=== PATIENT | male | born 1975 | race Caucasian/White ===

== ENCOUNTER 2023-01-21 00:56 | Day surgery (SDC) | payer BC, SELFPAY ==
[2023-01-17 12:13] VITALS: BMI 23.7
--- NOTE | 2023-01-17 12:21 | PC.NURSE ---
Report to the Outpatient Waiting Room, entrance under the green pavilion located off [facility], at time __0600 on date ___01/21/23____. Planned Procedure Time: ____729____. Time changes happen often and if your time is changed the preop area will call you the afternoon before. - You and your visitor will be asked to self-screen and do not enter if you have any COVID symptoms. - A mask is optional within the hospital at this time. Patients may have clear liquids (water, carbonated beverages, clear teas, apple juice) until 3 hours prior to surgery (0430- AM) with a maximum of 20 ounces. - No food from midnight until time of surgery - Infants may have breast milk until 4 hours before surgery, formula 6 hours prior to surgery. - Children will be allowed to drink immediately following surgery. If applicable, please bring a bottle or sippy cup to assist with drinking. Juice, water, soda, and popsicles are readily available. For infants on formula, please bring formula the day of surgery. Pacifiers are allowed. Take the following medications with a SIP of water the morning of surgery: NONE DO NOT STOP ANY OF YOUR OTHER PRESCRIPTION MEDICATIONS PRIOR TO SURGERY ?EXCEPT THE FOLLOWING Medications to discontinue per physician NONE Date to take last dose Please no make-up, nail pashto, hairspray, perfume, deodorant, or body powder the day of surgery. No jewelry (including any body piercings) or valuables the day of surgery, leave them at home. Please take a shower or bath the night before, or the morning of, surgery with an antibacterial soap. Wear comfortable, loose fitting clothing. Children are encouraged to wear pajamas. - Jewelry must be removed prior to entering the operating room. Rings and piercings that are not removed may be cut off. - The hospital will not accept responsibility for valuables. - Please leave all valuables, including medications, at home the day of surgery. If you are going home after surgery, a licensed otr flatbed driver must drive you home. - NO public transportation without another adult if you receive anesthesia. - We recommend that an adult stay with you for 24 hours following discharge. - We also recommend that you do not drive, make important decision, drink alcoholic beverages, or take any drugs that were not prescribed by your health care provider for at least 24 hours after your discharge time. For Pediatric surgeries, we recommend two adults accompany the child home. Follow any additional instructions given to you from your surgeon. If you or anyone in your household have experienced Covid symptoms in the past week, please notify your surgeon or the nurse liaison at the phone number below for possible testing. Telephone instructions given to PT and asked if any additional questions and then verbalized understanding. Patient advised to call surgeon office or pre surgery nurse liaison [phone] if any additional questions.
--- NOTE | 2023-01-20 09:52 | WPDANESEPPF ---
Anes - Initial Pre Proc Eval Procedure: Operation Date: 01/21/23 08:30 Proposed Procedures p Arthrodesis of Interphalangeal Joint Left Hallux - Martir Monterroso JR, MD Date/Time: 01/20/23 09:52 Surgeon: Martir Monterroso JR, MD Pre Op Diagnosis: Arthritis IPJ Lt Hallux Patient Data Age: 47 Gender: M Height: 1.78 m Weight: 75 kg Allergies Allergy/AdvReac Type Severity Reaction Status Date / Time No Known Allergies Allergy Mild Verified 01/21/23 07:03 Home Medications Medication Instructions Recorded Confirmed Type pantoprazole 20 mg tablet,delayed 20 mg PO DAILY 01/17/23 01/21/23 History release rosuvastatin 40 mg tablet 40 mg DAILY 01/17/23 01/21/23 History Patient hx anesthesia problems: none Family hx anesthesia problems: none Results Review: All pre-operative results and documents have been reviewed as part of the pre-operative evaluation. FORMERLY [facility], [facility] Past Medical History Medical History (Updated 01/20/23 @ 09:52 by Jeffrey Felipe DO) GERD (gastroesophageal reflux disease) Hyperlipidemia Social History Social History Smoking status: Never smoker Second hand tobacco smoke exposure: No Alcohol intake: current Drinks per week: 21 Substance use: never Substance use type: does not use Living arrangements: with family Spiritual care concerns: No Anes - Eval Final PreProcedure Day of Procedure 01/20/23 09:52 Patient weight: normal Heart: regular rate and rhythm Lungs: clear to auscultation Airway: Mallampati scale class II Neurological: alert and oriented Last oral intake: >/= 8 hours ASA classification: III Emergent: no Anesthetic plan: proceed Anesthesia type and monitoring: general GIVS and standard monitoring Results Review: All pre-operative results and documents have been reviewed as part of the pre-operative evaluation. Informed Consent: The patient's anesthetic plan and its attendant risks and benefits were discussed with the patient/family/POA. Questions were solicited and answers provided to the satisfaction of the patient/family/POA.
--- NOTE | ~2023-01-21 | XR_ITS ---
EXAMINATION: XR surgery orthopedic DATE: 01/21/2023 09:49 INDICATION: Left great toe arthrodesis TECHNIQUE: 2 fluoroscopic images of the left great toe were obtained during procedure performed by Dr Yaw Monterroso. Radiologist was not present for the imaging or procedure. The amount of fluoroscopy time used during this procedure was 0.4 minutes. COMPARISON: None. FINDINGS: Images demonstrate the left first interphalangeal arthrodesis which is fixed with a cannulated lag sc rew extending from the tuft of the distal phalanx to the metaphyseal region of the proximal phalanx. Alignment remains essentially anatomic. The remaining joint spaces appear relatively preserved. No fr actures. IMPRESSION: 1. Expected appearance post first interphalangeal arthrodesis with lag screw fixation. See procedure note for further detail. Reviewed, dictated and finalized at location A. IMPRESSION: 1. Expected appearance post first interphalangeal arthrodesis with lag screw fi xation. See procedure note for further detail.
[2023-01-21 06:47] VITALS: BP 135/87; PULSE 60; RESP 16; TEMP 36.7; O2SAT 100
--- NOTE | 2023-01-21 07:21 | WPDHPUPDATE1 ---
History and Physical Update Update Date/Time: 01/21/23 07:21 History and Physical has been reviewed, including an updated exam of the patient. There are NO changes in the patient's condition. Risks, benefits, and alternatives have been discussed and questions answered. Patient agrees to proceed with procedure.
[2023-01-21] MEDS: LACTATED RINGERS 1,000 ML 30 ML IV CONT (07:33)
[2023-01-21] MEDS: ceFAZolin 2 GM/D5W 50 ML 2 GM/50 ML BAG IVPB (08:44)
[2023-01-21] MEDS: BUPivacaine HCL 0.5% PF 30 ML VIAL 10 ML INFILTRATE (09:23)
[2023-01-21] MEDS: LIDOCAINE HCL 2% PF INJ 5 ML VIAL 10 ML INFILTRATE (09:23)
[2023-01-21 10:03] VITALS: BP 116/79; PULSE 56; RESP 14
--- NOTE | 2023-01-21 10:07 | W.PM.PROC2 ---
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 A pneumatic ankle tourniquet was placed about the patient's ankle. Following IV sedation, I performed a proximal first metatarsal Bal Block with 20cc's of a one to one mix of 0.5% Marcaine plain and 2% Lidocaine plain. The foot was then scrubbed, prepped, and draped in the usual aseptic manner. An Esmarch bandage was then used to examine the patient's foot and pneumatic ankle tourniquet was then inflated. Surgery began in the following manner. Attention was directed to the hallux where a 3cm incision was made just proximal to the nail fold extending to the base of the hallux. A transverse tenotomy was created dorsal to the interphalangeal joint, next the head of the proximal phalanx was resected with an sagittal saw blade. Fenestration of the joint performed with a 2.0 drill bit. Next, I drove a cannulated Yvonne 3.5mm screw across the joint under fluoroscopy. The implant and deformity were appropriately positioned within the canals of the proximal and distal phalanges. I repaired the extensor tendon with 3.0 Vicryl. I reapproximated the subcutaneous structures with 4.0 Vicryl and the skin with 4-0 Monocryl in running subcuticular suture fashion technique. Upon completion of the procedure, the incision was dressed with Adaptic, 4 x 4's, Kerlix, and Coban. The pneumatic ankle tourniquet was then deflated and a prompt hyperemic response noted to all digits of the foot. A surgical shoe was then applied. The patient did very well with the procedure and the anesthesia. The patient was transferred to the recovery room with vital signs stable and vascular status intact to all toes of the affected foot. Following a period of postoperative monitoring, the patient will be discharged home on the following written and oral postoperative instructions: 1. Keep the dressing clean, dry, and intact. Use a cast protector bag with showers. 2. The patient should use a surgical shoe for ambulation postoperatively. 3. The patient should be on bedrest with bathroom privileges and elevate the affected foot when at rest. 4. The patient to contact Dr. Monterroso for all postop care and if any problems arise. 5. Take Tylenol every 4 to 6 hours as needed for pain. Implants 3.5 Yvonne partially threaded cannulated screw Estimated Blood Loss 1 Drains No Packing No Pathology None sent Complications No immediate complications Condition Stable Disposition Same day
[2023-01-21 10:30] VITALS: BP 122/87; PULSE 62; RESP 14
[2023-01-21 10:54] VITALS: BP 147/87; PULSE 52; RESP 14
== END 2023-01-21 11:02 | disposition home or self-care (01) ==
PROVIDERS: PCP Internal Medicine; Visit Provider Podiatrist Foot & Ankle Surgery
PROC: (CPT 28750; principal; 2023-01-21 08:30)
DX: M19.072 Primary osteoarthritis, left ankle and foot (principal); K21.9 Gastro-esophageal reflux disease without esophagitis; E78.5 Hyperlipidemia, unspecified
CPT/HCPCS: 28750; 99199; C1713; J0690; J2250; J2704; J3010; J7120